=== PATIENT | female | born 1980 | race Caucasian/White ===

== ENCOUNTER → 2019-12-17 10:38 | Outpatient (CLI) | payer OTHER, SELFPAY ==
--- NOTE | 2019-12-17 10:40 | DI.US.S_ITS ---
PROCEDURE: US PELVIC COMPLETE INDICATIONS: PAIN; HISTORY OVARIAN CYST; ENDOMETRIAL POLYP TECHNIQUE: Real-time scanning was performed of the pelvic organs, with image documentation. Additional endovaginal scanning was necessary due to incomplete visualization of the adnexal and endometrial structures by transabdominal scanning. COMPARISON: [facility], [place], PELVIC COMPLETE, 04/29/2014, 14:10. FINDINGS: Transabdominal scanning: Limited scanning through the kidneys shows no hydronephrosis. No pathologic free abdominal or pelvic fluid. Endovaginal scanning: Uterus: Uterus is normal in size at 5.0 x 6.0 x 10.3 cm, anteverted. The endometrium measures 23 mm in combined thickness, hyperplastic, and contains a 2.8 x 1.0 x 2.0 cm endometrial polyp. Ovaries: The right ovary is enlarged to 6.6 x 5.0 x 6.0 cm containing a 5.3 cm maximal dimension presumed hemorrhagic ovarian cyst and a smaller 2.9 cm maximal dimension a simple cyst. The right ovary measures 3.5 x 2.4 x 2.4 cm, without dominant cysts. IMPRESSION: Abnormal endometrial lining thickness of 2.3 cm. This represents a combination of endometrial hyperplasia and a superimposed 2.8 x 1.0 x 2.0 cm polyp. Right ovarian cyst is large, contains low-level internal echoes presumably hemorrhagic in origin and measures up to 5.3 cm. Followup in 6-8 weeks is recommended to confirm resolution. If a cyst of this size and complexity does not spontaneously resolve gynecological surgical consultation is recommended. Dictated by: Chad Zendejas M.D. on 12/17/2019 at 13:04 Approved by: Chad Zendejas M.D. on 12/17/2019 at 13:07
== END ==
PROVIDERS: Referring Provider Obstetrics & Gynecology; Visit Provider Obstetrics & Gynecology
DX: R93.89 Abnormal findings on diagnostic imaging of other specified body structures (principal); N83.201 Unspecified ovarian cyst, right side; N84.0 Polyp of corpus uteri
CPT/HCPCS: 76830; 76856

== ENCOUNTER → 2024-01-22 12:27 | Outpatient (CLI) | payer OTHER, SELFPAY ==
--- NOTE | 2024-01-22 12:29 | DI.MRI.S_ITS ---
PROCEDURE: MR LUMBAR SPINE WO CON INDICATIONS: LOW BACK PAIN TECHNIQUE: Noncontrast sagittal T1 spin echo and T2 fast echo, sagittal STIR, and T2 fast spin echo through the lumbar spine. In cases with scoliosis, additional coronal T2 fast spin echo may be performed. COMPARISON: None. FINDINGS: Image quality: Excellent. Alignment and Curvature: Straightening of the normal lumbar lordosis. Bone Marrow: Modic type 1 degenerative endplate changes at L4-5 Marrow is of normal overall signal. No acute vertebral body compression fractures. Spinal Cord: Conus medullaris terminates at the L1 level. Visualized cord demonstrates normal signal and size. Paraspinous Soft Tissues: No paravertebral masses. T12-L1: Normal appearance. L1-L2: Normal appearance. L2-L3: Normal appearance. L3-L4: Normal appearance. L4-L5: Moderate disc desiccation height loss. Diffuse disc bulge. Facet arthropathy. No significant central canal stenosis. Mild bilateral neural foraminal stenosis. L5-S1: Minimal central disc protrusion. No central canal or neural foraminal stenosis. IMPRESSION: Focal degenerative disc disease at L4-5. No central canal stenosis. Mild bilateral neural foraminal stenosis. Dictated by: Shon Almanzar M.D. on 01/22/2024 at 14:10 Approved by: Shon Almanzar M.D. on 01/22/2024 at 14:12
== END ==
PROVIDERS: PCP Physician Assistant; Referring Provider Physician Assistant; Visit Provider Physician Assistant
DX: M51.36 Other intervertebral disc degeneration, lumbar region (principal); M48.061 Spinal stenosis, lumbar region without neurogenic claudication; M47.816 Spondylosis without myelopathy or radiculopathy, lumbar region; M54.50 Low back pain, unspecified
CPT/HCPCS: 72148